=== PATIENT | male | born 1945 | race Caucasian/White ===

== ENCOUNTER 2016-04-16 07:57 | Inpatient (IN) | payer OTHER, BC ==
[~2016-04-16] VITALS: Ht 180.3 cm; Wt 91.6 kg
[~2016-04-16 07:57] MED LIST: ASPI-232 PO; LISI-461 PO; OMEG1CAP81 PO; SITA25TA PO; TRAM-10 PO
--- NOTE | 2016-04-16 08:40 | EMERGENCY ROOM VISIT NOTE ---
ED Visit Note First contact with patient: 08:05 I have seen and examined this patient with Jono Morrow and generally agree with the treatment plan as discussed. Problem List Medical Problems: (1) ACUTE VENOUS EMBOLISM & THROMBOSIS UNSP DEEP VESSELS OF LE Status: Resolved (2) Diverticulitis Status: Chronic Current/Historical Medications Scheduled Aspirin (Aspir-81), 81 MG PO DAILY Cinnamon (Cinnamon), 1,000 MG PO DAILY Coenzyme Q10 (Ubidecarenone) (Co Q 10), 100 MG PO DAILY Lisinopril (Zestril), 10 MG PO DAILY Multiple Vitamins W/ Minerals (Multi For Him), 1 TAB PO DAILY [place]-3 Fatty Acids (Fish Oil), 1,200 MG PO QAM Rosuvastatin Calcium (Crestor), 10 MG PO DAILY Sitagliptin (Januvia), 25 MG PO DAILY Scheduled PRN Tramadol (Ultram), 50 MG PO Q4H PRN for Pain Allergies Coded Allergies: Codeine (Verified Allergy, Mild, HIVES, 12/06/15) Sulfa Drugs (Verified Allergy, Unknown, HIVES, 12/06/15) Vital Signs Date Time Temp Pulse Resp B/P Pulse Ox O2 Delivery O2 Flow Rate FiO2 04/16/16 07:58 36.9 122 20 163/101 94 Laboratory Results Test 04/16/16 08:29 Departure Information Referrals Pro,Flex Woo M.D. (PCP) Patient Instructions A Signature Page, My [facility]
[2016-04-16 08:58] LABS: BASO % 0.6 %; BASO ABS # 0.04 K/uL (0-0.2); COMPLETE YES; EOS % 4.5 %; HEMATOCRIT 39.9 % (42-52); IG% 0.1 %; LYMPH % 13.1 %; LYMPH ABS # 0.95 K/uL (1.2-3.4); MEAN CELL VOLUME 82.4 fL (80-100); MEAN CORPUSCULAR HEMOGLOBIN 28.3 pg (25-34); MEAN CORPUSCULAR HGB CONC 34.3 g/dl (32-36); MONO % 8.5 %; NEUT % 73.2 %; PLATELET COUNT 123 K/uL (130-400); RED BLOOD COUNT 4.84 M/uL (4.7-6.1); WHITE BLOOD COUNT 7.26 K/uL (4.8-10.8)
[2016-04-16 09:10] LABS: INR 1.1 (0.9-1.1); PARTIAL THROMBOPLASTIN RATIO 1.1; PROTHROMBIN TIME (PATIENT) 11.8 SECONDS (9.0-12.0)
[2016-04-16 09:15] LABS: BUN/CREATININE RATIO 16.4 (10-20); CALCIUM 9.3 mg/dl (8.5-10.1); CREATININE 2.2 mg/dl (0.60-1.40); POTASSIUM 5.1 mmol/L (3.5-5.1)
[2016-04-16 09:18] LABS: ALB/GLOB RATIO 1.1 (0.9-2)
--- NOTE | 2016-04-16 10:18 | DIAGNOSTIC IMAGING REPORT ---
RIGHT LOWER EXTREMITY VENOUS DOPPLER HISTORY: Right leg pain and swelling for COMPARISON STUDY: None. FINDINGS: There is an acute appearing deep vein thrombosis within the distal superficial femoral vein, popliteal vein, posterior tibial veins, and peroneal veins. The majority of the thrombus appears occlusive. The common femoral vein and anterior tibial vein are patent. IMPRESSION: Extensive right lower extremity DVT as described above. Electronically signed by: Kehinde Rascon M.D. 04/16/2016 10:17 AM
--- NOTE | 2016-04-16 11:34 | EMERGENCY ROOM VISIT NOTE ---
History First contact with patient: 08:05 Chief Complaint: CALF PAIN Stated Complaint: PAIN RIGHT CALF, SWELLING History of Present Illness Patient is a 70-year-old white male with past medical history significant for diabetes, hypertension, dyslipidemia and a factor V Leiden genetic mutation who presents to emergency department for evaluation of right calf pain. He noticed discomfort in the midportion of the right calf last night. He states that his right calf is a little bit more swollen than the left. He states that he is pain with weight bearing and when he moves his ankle. He states it feels muscular in nature. He has a history of a left lower extremity DVT in 2009. He denies that that was associated with any travel, surgery or prolonged immobilization. He states that he did have a coagulation workup at that time and tested positive for one factor V Leiden genetic mutation. He was anticoagulated for 6 months. He did travel to [facility] a couple of weeks ago by plane. 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 He denies any symptoms in the left leg. No unusual activity, trauma to the right leg or falls that he could attribute to his symptoms. He denies any chest pain, palpitations or shortness of breath. He does not smoke. He states that saw Dr. Wu, his PCP earlier this week for a physical. 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 He does state that his heart rate was high initially when he was in Dr. Wu's office, but was rechecked and was in the 90s. He follows with nephrology due to a history of renal carcinoma for which he underwent nephrectomy. He did not require any adjuvant therapy. Review of Systems Review of systems as per HPI. All other systems reviewed were negative. 10 systems reviewed. Past Medical/Surgical History Medical Problems: (1) ACUTE VENOUS EMBOLISM & THROMBOSIS UNSP DEEP VESSELS OF LE (2) Arthritis of right hip (3) Diab Haley Wo Compl, Type Ii Or Unspec Type, Not Uncntrld (4) Diverticulitis (5) Dyslipidemia (6) Factor V Leiden mutation (7) Hx-Venous Thrombosis&Embolism (8) Hypertension (9) Renal cell carcinoma Surgical Problems: (1) History of nephrectomy, unilateral (2) History of spinal surgery Electronic medical records are reviewed and summarized as above/below. See Problem List. Family History Patient reports no known family medical history. Social History Smoking Status: Never Smoker Alcohol Use: occasionally Drug Use: none Marital Status: Occupation Status: retired Current/Historical Medications Scheduled Aspirin (Aspir-81), 81 MG PO DAILY Calcitriol (Rocaltrol Cap), 0.25 MCG PO Q2D Cinnamon (Cinnamon), 1,000 MG PO DAILY Coenzyme Q10 (Ubidecarenone) (Co Q 10), 100 MG PO DAILY Lisinopril (Zestril), 20 MG PO DAILY Multiple Vitamins W/ Minerals (Multi For Him), 1 TAB PO DAILY [place]-3 Fatty Acids (Fish Oil), 1,200 MG PO QAM Rosuvastatin Calcium (Crestor), 10 MG PO DAILY Sitagliptin (Januvia), 25 MG PO DAILY Scheduled PRN Tramadol (Ultram), 50 MG PO Q4H PRN for Pain Allergies Coded Allergies: Codeine (Verified Allergy, Mild, HIVES, 04/16/16) Sulfa Drugs (Verified Allergy, Unknown, HIVES, 04/16/16) Physical Exam Vital Signs Date Time Temp Pulse Resp B/P Pulse Ox O2 Delivery O2 Flow Rate FiO2 04/16/16 13:18 100 04/16/16 13:16 96 20 154/96 96 Room Air 04/16/16 12:29 Room Air 04/16/16 11:49 91 18 134/99 93 Room Air 04/16/16 10:47 100 04/16/16 10:10 85 19 111/82 97 Room Air 04/16/16 07:58 36.9 122 20 163/101 94 Physical Exam CONSTITUTIONAL: Patient is a pleasant, well-appearing 70-year-old white male who is awake and alert and in no acute distress. Blood pressure noted to be 163 /101 in triage. Pulse rate was 122 beats per minute, was rechecked by me at time of exam and was 101 beats per minute. Oxygen saturation is 94% on room air. EYES: Pupils equal, round, reactive to light and accommodation. EOMs intact without nystagmus. Sclera are anicteric. ENT: Tympanic membranes intact, with normal landmarks. External canals are clear. Oral and nasopharynx are clear. Mucous membranes are moist, no lesions , tongue and gums appear normal. NECK: No bruits auscultated. Supple without lymphadenopathy. No thyromegaly. No meningeal signs. Full active range of motion without discomfort. CARDIOVASCULAR: Tachycardic rate and rhythm, with normal S1 and S2, no murmur or gallop or rub is heard. No carotid bruits auscultated. No JVD. Peripheral pulses easy to palpable. RESPIRATORY: Breath sounds equal and clear to auscultation without wheezes, rales, or rhonchi heard. Full and equal chest expansion without accessory muscle use or retractions. GI: Bowel sounds are present. Abdomen is soft, nontender, nondistended. No organomegaly. No pulsatile masses. No guarding or rebound. MUSCULOSKELETAL: Examination of the right lower extremity shows slight swelling of the right calf/lower leg when compared to the left. He has reproducible tenderness to palpation in the mid right gastrocnemius. He has full range of motion of the knee, ankle and hip without pain. There is no pitting edema. No palpable cords, increased erythema, warmth or lymphangitic streaking. Full range of motion of extremities x 4 with good strength. Lower extremity pulses are equal and symmetrical bilaterally. INTEGUMENTARY: No lesions or rash, normal skin turgor. NEUROLOGICAL: Alert, oriented, and cooperative. Cranial nerves, sensation and strength grossly intact. Pupils round, equal, and react to light, EOMs are full. LYMPH: No lymphadenopathy. Medical Decision & Procedures ER Provider Diagnostic Interpretation: RIGHT LOWER EXTREMITY VENOUS DOPPLER HISTORY: Right leg pain and swelling for COMPARISON STUDY: None. FINDINGS: There is an acute appearing deep vein thrombosis within the distal superficial femoral vein, popliteal vein, posterior tibial veins, and peroneal veins. The majority of the thrombus appears occlusive. The common femoral vein and anterior tibial vein are patent. IMPRESSION: Extensive right lower extremity DVT as described above. Laboratory Results 04/16/16 08:40 Red Blood Count 4.84, Mean Corpuscular Volume 82.4, Mean Corpuscular Hemoglobin 28.3, Mean Corpuscular Hemoglobin Concent 34.3, Mean Platelet Volume 10.0, Neutrophils (%) (Auto) 73.2, Lymphocytes (%) (Auto) 13.1, Monocytes (%) (Auto) 8.5, Eosinophils (%) (Auto) 4.5, Basophils (%) (Auto) 0.6, Neutrophils # (Auto) 5.31, Lymphocytes # (Auto) 0.95, Monocytes # (Auto) 0.62, Eosinophils # (Auto) 0.33, Basophils # (Auto) 0.04 04/16/16 08:40 Test 04/16/16 08:40 White Blood Count 7.26 K/uL (4.8-10.8) Red Blood Count 4.84 M/uL (4.7-6.1) Hemoglobin 13.7 g/dL (14.0-18.0) Hematocrit 39.9 % (42-52) Mean Corpuscular Volume 82.4 fL (80-100) Mean Corpuscular Hemoglobin 28.3 pg (25-34) Mean Corpuscular Hemoglobin Concent 34.3 g/dl (32-36) Platelet Count 123 K/uL (130-400) Mean Platelet Volume 10.0 fL (7.4-10.4) Neutrophils (%) (Auto) 73.2 % Lymphocytes (%) (Auto) 13.1 % Monocytes (%) (Auto) 8.5 % Eosinophils (%) (Auto) 4.5 % Basophils (%) (Auto) 0.6 % Neutrophils # (Auto) 5.31 K/uL (1.4-6.5) Lymphocytes # (Auto) 0.95 K/uL (1.2-3.4) Monocytes # (Auto) 0.62 K/uL (0.11-0.59) Eosinophils # (Auto) 0.33 K/uL (0-0.5) Basophils # (Auto) 0.04 K/uL (0-0.2) RDW Standard Deviation 39.7 fL (36.4-46.3) RDW Coefficient of Variation 13.2 % (11.5-14.5) Immature Granulocyte % (Auto) 0.1 % Immature Granulocyte # (Auto) 0.01 K/uL (0.00-0.02) Prothrombin Time 11.8 SECONDS (9.0-12.0) Prothromb Time International Ratio 1.1 (0.9-1.1) Activated Partial Thromboplast Time 28.9 SECONDS (21.0-31.0) Partial Thromboplastin Ratio 1.1 Anion Gap 9.0 mmol/L (3-11) Est Creatinine Clear Calc Drug Dose 35.7 ml/min Estimated GFR () 33.7 Estimated GFR (Non- 29.1 BUN/Creatinine Ratio 16.4 (10-20) Calcium Level 9.3 mg/dl (8.5-10.1) Total Bilirubin 0.6 mg/dl (0.2-1) Aspartate Amino Transf (AST/SGOT) 18 U/L (15-37) Alanine Aminotransferase (ALT/SGPT) 30 U/L (12-78) Alkaline Phosphatase 66 U/L (45-117) Total Protein 6.9 gm/dl (6.4-8.2) Albumin 3.6 gm/dl (3.4-5.0) Globulin 3.3 gm/dl (2.5-4.0) Albumin/Globulin Ratio 1.1 (0.9-2) ED Course The patient was seen and evaluated as above. Old records are reviewed. Initially, blood work was ordered including CBC with differential, CMP and PT/PT /INR. Right lower extremity ultrasound was performed. The patient remained borderline tachycardic throughout his emergency department stay, otherwise was hemodynamically stable. Patient's laboratory studies were reviewed. H&H is 13.7 and 39.9, platelet count is slightly low at 123,000. Coags are normal. Electrolytes are within normal limits. Liver functions are normal. BUN and creatinine are elevated at 36 and 2.2 respectively, consistent with his chronic kidney disease. He reported to me that his baseline creatinine is around 1.9. Ultrasound of the right lower extremity showed extensive DVT. The patient was reassessed. Upon further questioning, he did admit to intermittent shortness of breath and pain in his shoulders which he had attributed to musculoskeletal source. All laboratory and diagnostic imaging studies were reviewed with attending physician, who also independently evaluated the patient. Certainly, given the extensive DVT and his hypercoagulable state, I was concerned for a pulmonary embolus. Unfortunately he cannot have a CTA due to his renal function. EKG was performed and revealed a normal sinus rhythm at 83 beats per minute. No acute ischemic changes are noted. Given the extensive DVT, tachycardia, shoulder pain and shortness of breath, I did review the patient with the [facility] hospitalist service for further care and evaluation. Anticoagulation was held at their request pending hospitalist evaluation. The patient remained hemodynamically stable while in the emergency department. Differential diagnoses entertained included DVT, calf strain, superficial thrombophlebitis, cellulitis, compartment syndrome, PE, among others. Medical Decision See ED Course. Impression Primary Impression: Deep vein thrombosis (DVT) of right lower extremity Additional Impression: Tachycardia Departure Information Dispostion Being Evaluated By Hospitalist Referrals Pro,Flex Woo M.D. (PCP) Patient Instructions A Signature Page, My [facility]
[2016-04-16 12:29] VITALS: Ht 180.3 cm; Wt 91.6 kg
[2016-04-16] MEDS ORDERED: GLUCAGON FOR INJ 1 MG VIAL SQ PRN (13:45)
[2016-04-16] MEDS ORDERED: GLUCOSE 40% GEL 15 GM TUBE PO PRN (13:45)
[2016-04-16] MEDS ORDERED: ACETAMINOPHEN 325 MG TAB PO PRN (13:45)
[2016-04-16] MEDS ORDERED: GLUCOSE 10 TABS/TUBE PO PRN (13:45)
[2016-04-16] MEDS ORDERED: DEXTROSE 50% 50 ML SYR IV PRN (13:45)
[2016-04-16] MEDS ORDERED: ONDANSETRON INJ 2 MG/ML 2 ML VIAL IV PRN (13:45)
[2016-04-16] MEDS ORDERED: STANDARD WARFARIN NOMOGRAM PO SCH (14:00)
[2016-04-16] MEDS ORDERED: HEPARIN 25000 UNIT/500 ML D5W ONE (14:12)
[2016-04-16] MEDS ORDERED: HEPARIN SOD 5000 UNIT/0.5 ML CARP ONE (14:12)
[2016-04-16 15:25] VITALS: BP 155/99; PULSE 89; TEMP 37.3; O2SAT 91
--- NOTE | 2016-04-16 15:30 | HISTORY & PHYSICAL EXAMINATION ---
DATE OF ADMISSION: 04/16/2016 ADMISSION LEVEL 3. CHIEF COMPLAINT: Right lower extremity edema. HISTORY OF PRESENT ILLNESS: This is a 70-year-old male with known history of factor V deficiency. Basically he had DVT in 2009 and he was on Coumadin for 6 months and has been discontinued. He woke up this morning having painful swelling of the right leg and he knew this could be another DVT. He came to the hospital. He denied any falling or any trauma. 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 Mild chest pain and no shortness of breath, no fever, no chills, no loss of consciousness, no headache, no blurry vision, no bleeding tendency. Workup in the Emergency Room showed DVT in the right lower extremity. Creatinine around 2, he has 1 kidney, 1 removed for renal cancer. According to the patient and the he uses lisinopril 10 mg which was recently increased by his experimental psychologist to 20 mg. It was addressed with them this could be affecting kidney specially has one kidney ,but he wanted to continue it and he was okay to be decreased back to10 mg. He does not want to be discontinued completely. Discussion about DVT managing it, they were asking for Eliquis after explaining to them in regard to the kidney function and bleeding risk and no availability of reversal agent they chose now to go on heparin and Coumadin for now. 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 PAST SURGICAL HISTORY: Positive for nephrectomy and lower back surgery. SOCIAL HISTORY: , lives with . Never smoked. Occasionally drinks some alcohol. No drugs. FAMILY HISTORY: Negative for hypercoagulability diseases, history of hypertension and diabetes as well. REVIEW OF SYSTEMS: From 12-point review as mentioned in history and physical, all the findings appreciated. MEDICATIONS ON ADMISSION: Reconciled with the patient and the . 1. Aspirin 81 mg daily. 2. Calcitrol 0.25 every other day. 3. Cinnamon 1000 mg daily. 4. CoQ10 100 mg daily. 5. Lisinopril 20 mg daily. 6. Multivitamin with mineral once daily. 7. [place] 3 1200 daily. 8. Crestor 10 mg daily. 9. Januvia 25 daily. 10. Ultram 50 mg every 4 hours as needed. ALLERGIES: CODEINE AND SULFA DRUGS. PHYSICAL EXAMINATION: VITAL SIGNS: Temperature 36.7, pulse 105, then 91, blood pressure 146/89, now like 130s/90s. O2 sat 96% on room air. Blood pressure now is 134/99. O2 sat was 97 on the room air. Heart rate is like 91. Temperature is 36.9. GENERAL: Awake, alert, oriented x3, not in distress. HEAD, EYES, EARS, NOSE, AND THROAT: Normocephalic. No nasal discharge. SKIN: Mucous membranes warm, dry. Moist mucous membranes. NECK: Supple. No JVD. No bruits. No goiter. CHEST: Symmetrical expansion, no tenderness. LUNGS: With air entry bilaterally. No rales or rhonchi. No crackles. No wheezes. HEART: S1, S2. Regular. No added sound appreciated. ABDOMEN: Globular, soft, nontender. No guarding, no rigidity. Bowel sounds positive. EXTREMITIES: Pitting edema of the right lower extremity with good peripheral pulses. Mild swelling of the left lower extremity as well. Good range of motion of the joint, bone and muscle. Good range of motion of the joint. No erythema, swelling or tenderness of any joint or muscle. BACK: No costovertebral angle tenderness. No lower back erythema or ulceration. PELVIC: Deferred. RECTAL: Deferred. NEUROLOGICALLY: Awake, alert, oriented. Motor and sensation intact. LABORATORY DATA: PT 11.8, INR 1.1, PTT 20.9 and PTT ratio is 1.1. Sodium 139, potassium 5.1, chloride 105, BUN 36, creatinine 2.20, creatinine clearance 35.7, sugar 228. Liver enzymes normal. White cell count 7.26, hemoglobin more than 14, hematocrit 39.9, platelet count 123. Lower extremity ultrasound basically showed extensive right lower extremity DVT. IMPRESSION: A 70-year-old male presented with painful swelling of the right lower extremity, was having some tachycardia, mild chest pain earlier. Definitely there is a DVT in the right lower extremity, PE is questionable but having no chest pain, no shortness of breath, heart rate is improving. 1. Deep venous thrombosis of the right lower extremity with known factor V deficiency with recent travel to [place]. 2. Tachycardia with mild chest pain earlier with pulmonary embolism questionable but unlikely. 3. Factor V deficiency. 4. Chronic kidney disease stage II on III. 5. Diabetes. 6. Hypertension. 7. Dyslipidemia. 8. History of renal cell carcinoma status post nephrectomy on the left side. PLAN: 1. The patient needs to be admitted as an inpatient clearly DVT and questionable PE, otherwise he is at risk of worsening condition, cardiopulmonary compromise with high morbidity and mortality. I had a long and detailed discussion with the patient and the family regarding anticoagulation. All questions answered about Eliquis and not having antidotes for now, specially with poor renal function. They opted to go on Coumadin and heparin for now and if he remains stable and no issue maybe the heparin could be changed to Lovenox renally dosed and could be home and finish Lovenox and Coumadin accordingly at home. 2. Monitor for bleeding and nay bleeding event which is denied by the patient and the . 3. Regarding the lisinopril I recommended to be discontinued and use another blood pressure agent specially his pressure is not so high and he is only on Lisinopril, but patient insisting on continuing it but he is okay to go back to 10 mg which was recently increased from 10 to 20. Give him some IV fluid, recheck renal function again. Will hold any CT of the chest because of the renal function and even VQ scan garret not help us or make a difference specially he is stable even if he has PE. we are going to treat him anyway unless the patient's condition deteriorates, in that case it will be a different conversation. I explained to him again that he needs to have regular checkup and monitor INR and blood count as well, monitor for any kind of bleeding . 4. Regarding the diabetes I am going to put the patient back on Januvia and monitor blood sugar closely. 5. Regarding dyslipidemia continue statin. 6. Regarding chronic renal failure, recheck but he wanted to continue lisinopril and recommended him to follow up with the experimental psychologist as an outpatient a well. Continue the rest of the management. All this was discussed with the patient and and they expressed understanding. Code status is going to be full code. DVT prophylaxis he is going to be on heparin and Coumadin. Time spent is 50 minutes. MTDD
[2016-04-16 16:00] VITALS: O2SAT 91
[2016-04-16] MEDS: SODIUM CHLORIDE 0.9% 1000ML 1,000 ML IV SCH (16:20)
[2016-04-16] MEDS: WARFARIN SOD 5 MG TAB PO SCH (16:23)
[2016-04-16] MEDS: INSULIN ASPART 100 UNITS/ML 3 ML PEN SC SCH ×2 (18:15→20:38)
[2016-04-16 19:24] VITALS: BP 149/105; PULSE 93; TEMP 37.1; O2SAT 92
[2016-04-16 20:00] VITALS: O2SAT 91
[2016-04-16 20:48] LABS: PARTIAL THROMBOPLASTIN RATIO 1.9
[2016-04-16] MEDS ORDERED: NURSING VERBAL MED ORDER ONE (23:45)
[2016-04-16] MEDS ORDERED: SODIUM CHLORIDE 0.65% NA SOLN 45 ML (OCEAN) ONE (23:46)
[2016-04-16 23:58] VITALS: BP 144/88; PULSE 97; TEMP 36.9; O2SAT 95
[2016-04-17] VITALS (8 sets, daily range): BP systolic 123–157; BP diastolic 72–91; PULSE 60–85; TEMP 36.3–37; O2SAT 92–96
[2016-04-17] MEDS ORDERED: SODIUM CHLORIDE 0.65% NA SOLN 45 ML (OCEAN) PRN (00:15)
[2016-04-17] MEDS: SODIUM CHLORIDE 0.9% 1000ML 1,000 ML IV SCH (02:45)
[2016-04-17] MEDS: HEPARIN 25,000 UNIT/500ML D5W 500 ML IV PRN ×3 (03:24→18:30)
[2016-04-17] MEDS: ASPIRIN 81 MG ECTAB PO SCH (08:04)
[2016-04-17] MEDS: CEROVITE ADV FORMULA TAB PO SCH (08:04)
[2016-04-17] MEDS: LISINOPRIL 10 MG TAB PO SCH (08:05)
[2016-04-17] MEDS: SITAGLIPTIN 25 MG TAB PO SCH (08:05)
[2016-04-17] MEDS: ROSUVASTATIN CALCIUM 10 MG TAB PO SCH (08:06)
[2016-04-17] MEDS ORDERED: CALCITRIOL 0.25 MCG CAP PO SCH (09:00)
[2016-04-17 09:11] LABS: PARTIAL THROMBOPLASTIN RATIO 1.8
[2016-04-17] MEDS: INSULIN ASPART 100 UNITS/ML 3 ML PEN SC SCH ×4 (09:27→20:33)
[2016-04-17] MEDS ORDERED: HEPARIN IV BOLUS 3,000 UNIT in SYRINGE 0 ML IV ONE (10:45)
--- NOTE | 2016-04-17 16:21 | Progress Note ---
Subjective Date of Service: Apr 17, 2016. Subjective Pt evaluation today including: conversation w/ patient, conversation w/ family , chart review, review of studies Pain: none PO Intake: well Voiding: no voiding problems seen and examined awake and alert, afebrile, no CP or SOB, no N or V, no bleeding events, at bed site, R leg pain and swelling are less still on hep drip Problem List Medical Problems: (1) Arthritis of right hip Status: Chronic (2) Deep vein thrombosis (DVT) of right lower extremity Status: Acute (3) Diab Haley Wo Compl, Type Ii Or Unspec Type, Not Uncntrld Status: Chronic (4) Dyslipidemia Status: Chronic (5) Factor V Leiden mutation Status: Chronic (6) Hypertension Status: Chronic (7) Tachycardia Status: Acute Review of Systems Constitutional: + see HPI Eyes: + see HPI ENT: + see HPI Respiratory: + see HPI Cardiac: + see HPI Abdomen: + see HPI Musculoskeletal: + see HPI Male : + see HPI Neurologic: + see HPI Psychiatric: + see HPI Heme: + see HPI Endo: + see HPI Medications Current Inpatient Medications Medications (Trade) Dose Ordered Sig/Sis Route Start Time Stop Time Status Last Admin Dose Admin Acetaminophen (Tylenol Tab) 650 mg Q4H PRN PO 04/16/16 13:45 05/16/16 13:44 Ondansetron HCl (Zofran Inj) 4 mg Q6H PRN IV 04/16/16 13:45 05/16/16 13:44 Insulin Aspart (novoLOG ASPART) SLIDING SCALE If C... ACHS SC 04/16/16 16:30 05/16/16 16:29 04/17/16 09:27 1 UNITS Glucose (Glucose 40% Gel) 15-30 GRAMS 15 GRAMS... UD PRN PO 04/16/16 13:45 05/16/16 13:44 Glucose (Glucose Chew Tab) 4-8 Tablets 4 Tabl... UD PRN PO 04/16/16 13:45 05/16/16 13:44 Dextrose (Dextrose 50% 50ML Syringe) 25-50ML OF 50% DW IV FOR... UD PRN IV 04/16/16 13:45 05/16/16 13:44 Glucagon (Glucagon Inj) 1 mg UD PRN SQ 04/16/16 13:45 05/16/16 13:44 Aspirin (Ecotrin Tab) 81 mg DAILY PO 04/17/16 09:00 05/17/16 08:59 04/17/16 08:04 81 MG Calcitriol (Rocaltrol Cap) 0.25 mcg Q2D@0900 PO 04/17/16 09:00 05/17/16 08:59 04/17/16 08:06 0.25 MCG Lisinopril (Zestril Tab) 10 mg DAILY PO 04/17/16 09:00 05/17/16 08:59 04/17/16 08:05 10 MG Multivitamins/ Minerals (Multivitamin W/ Minerals Tab) 1 tab DAILY PO 04/17/16 09:00 05/17/16 08:59 04/17/16 08:04 1 TAB Rosuvastatin Calcium (Crestor Tab) 10 mg DAILY PO 04/17/16 09:00 05/17/16 08:59 04/17/16 08:06 10 MG Sitagliptin Phosphate (Januvia Tab) 25 mg DAILY PO 04/17/16 09:00 05/17/16 08:59 04/17/16 08:05 25 MG Tramadol HCl 50 mg 50 mg Q4H PRN PO 04/16/16 13:45 05/16/16 13:44 Heparin Sodium/ Dextrose (Heparin 25,000 Unit/500ml D5W) 500 ml @ 33 mls/hr [id number] PRN IV 04/16/16 14:30 05/16/16 14:29 04/17/16 10:54 33 MLS/HR Warfarin Sodium (Coumadin Tab) 5 mg DAILY@16 PO 04/16/16 16:00 05/16/16 15:59 04/16/16 16:23 5 MG Sodium Chloride ([place] Nasal [place]) 1 sprays PRN PRN NA 04/17/16 00:15 05/17/16 00:14 Objective Vital Signs Date Time Temp Pulse Resp B/P Pulse Ox O2 Delivery O2 Flow Rate FiO2 04/17/16 15:08 36.3 78 20 150/75 92 Room Air 04/17/16 12:00 Room Air 04/17/16 11:18 37.0 76 20 123/72 93 Room Air 04/17/16 08:00 Room Air 04/17/16 07:36 36.8 74 22 136/72 94 Room Air 04/17/16 04:00 Room Air 04/17/16 03:45 36.7 85 22 132/87 95 Room Air 04/17/16 00:00 Room Air 04/16/16 23:58 36.9 97 22 144/88 95 Room Air 04/16/16 20:00 91 Room Air 04/16/16 19:24 37.1 93 20 149/105 92 Room Air Physical Exam General Appearance: no apparent distress, + obese Eyes: normal inspection, sclerae normal ENT: normal ENT inspection, hearing grossly normal Neck: supple, no adenopathy, no JVD Respiratory/Chest: chest non-tender, lungs clear, normal breath sounds, no respiratory distress, no accessory muscle use Cardiovascular: regular rate, rhythm, no edema, no gallop, no JVD, no murmur Abdomen: normal bowel sounds, non tender, soft, no organomegaly, no pulsatile mass Extremities: normal range of motion, non-tender, normal inspection, no pedal edema, no calf tenderness Neurologic/Psychiatric: no motor/sensory deficits, alert, normal mood/affect, oriented x 3 Skin: normal color, warm/dry, no rash Lymphatic: no adenopathy Laboratory Results Last 24 Hours Test 04/16/16 16:36 04/16/16 20:13 04/16/16 20:17 04/17/16 07:50 Bedside Glucose 189 mg/dl 187 mg/dl Activated Partial Thromboplast Time 49.2 SECONDS 46.1 SECONDS Partial Thromboplastin Ratio 1.9 1.8 Test 04/17/16 11:34 Bedside Glucose 181 mg/dl Assessment and Plan -Deep venous thrombosis of the right lower extremity with known factor V deficiency with recent travel to [place]. because of ARF and new agents not having reversal agnet they opted to go for warfarin for now cont hep and warfarin if renal fun is better by tomorrow and no bleeding event , hep can be changed to Lovenox and be dced w Lovenox and Coumadin Needs life long Anticoagulation - Doubted PE even w Tachycardia with mild chest pain , resolved will be anticoagulated anyway -Known H/O Factor V deficiency. Acute renal failure, has only R kid and his box tender just increased his Lisinopril to 20 mg recommended to be completely stopped but he dose not want to despite explaining to them and explaining renal effect and having only one kidney, he agree to decrease the dose back to 10 Chronic kidney disease stage II on III. recheck labs IVF Diabetes. Fideluvюлия Monitor BS Hypertension. lisinopril, BP in good range Dyslipidemia. statin History of renal cell carcinoma status post nephrectomy on the left side. plan: all Dw pat and in detail rest above DVt pro: Hep and Coumadin
[2016-04-17] MEDS: WARFARIN SOD 5 MG TAB PO SCH (16:24)
[2016-04-17 17:23] LABS: PARTIAL THROMBOPLASTIN RATIO 2.5
[2016-04-17 23:35] LABS: PARTIAL THROMBOPLASTIN RATIO 2.3
[2016-04-18] VITALS (7 sets, daily range): BP systolic 123–154; BP diastolic 78–83; PULSE 84–101; TEMP 36.9–37.3; O2SAT 92–99
[2016-04-18 05:51] LABS: INR 1.2 (0.9-1.1); PARTIAL THROMBOPLASTIN RATIO 2.2; PROTHROMBIN TIME (PATIENT) 12.8 SECONDS (9.0-12.0)
[2016-04-18 06:18] LABS: BUN/CREATININE RATIO 12.1 (10-20); CALCIUM 8.9 mg/dl (8.5-10.1); CREATININE 1.8 mg/dl (0.60-1.40); POTASSIUM 4.4 mmol/L (3.5-5.1)
[2016-04-18] MEDS: TRAMADOL HCL 50 MG TAB PO PRN ×2 (08:00→15:55)
[2016-04-18] MEDS: ASPIRIN 81 MG ECTAB PO SCH (08:42)
[2016-04-18] MEDS: CEROVITE ADV FORMULA TAB PO SCH (08:43)
[2016-04-18] MEDS: ROSUVASTATIN CALCIUM 10 MG TAB PO SCH (08:43)
[2016-04-18] MEDS: LISINOPRIL 10 MG TAB PO SCH (08:43)
[2016-04-18] MEDS: SITAGLIPTIN 25 MG TAB PO SCH (08:43)
[2016-04-18] MEDS: INSULIN ASPART 100 UNITS/ML 3 ML PEN SC SCH ×2 (08:45→12:25)
[2016-04-18] MEDS: HEPARIN 25,000 UNIT/500ML D5W 500 ML IV PRN (10:49)
[2016-04-18] MEDS: WARFARIN SOD 5 MG TAB PO SCH (15:54)
[2016-04-18] MEDS ORDERED: LSN10 PO (15:55)
[2016-04-18] MEDS ORDERED: LVNIS100 SQ (15:55)
[2016-04-18] MEDS ORDERED: CMD5 PO (15:55)
[2016-04-18] MEDS ORDERED: ENOXAPARIN 1 MG/KG SQ SCH (16:00)
--- NOTE | 2016-04-18 16:01 | Discharge Instructions ---
Discharge Instructions Admission Reason for Admission: DVT Discharge Discharge Diagnosis / Problem: Right lower extremity DVT Discharge Goals Goal(s): Improve disease control, Therapeutic intervention Activity Recommendations Activity Limitations: as noted below Exercise/Sports Limitations: gradually increase as tolerated Because you are on a blood thinner, you should avoid contact sports or any activities that may put you at risk for head trauma. You should always wear a helmet when biking or on motorized vehicles, skiing, etc. . . Instructions / Follow-Up Instructions / Follow-Up You were admitted to the hospital due to a DVT in your right leg. You were unable to have a CT scan of the chest done to look for a pulmonary embolism due to your low kidney function. Regardless, you will need to remain on anticoagulation with coumadin for the rest of your life to prevent future blood clots. You will need to use the Lovenox injections twice daily along with your once daily coumadin until directed to stop by your doctor or by the Coumadin Clinic. Due to the holiday, we were unable to set you up with the coumadin clinic prior to discharge. You should have your PT/INR blood work checked tomorrow at the hospital lab and the results will be sent to Dr. Wu. Current Hospital Diet Patient's current hospital diet: AHA Diet (Heart Healthy), Diabetes Type 2 Diet Discharge Diet Recommended Diet: AHA Diet (Heart Healthy), Diabetes Type 2 Diet (and a consistently low Vitamin K diet.) Procedures Procedures Performed: Doppler Right lower extremity Pending Studies Studies pending at discharge: no Laboratory Results Hemoglobin A1c Test 04/06/16 07:59 Range/Units Estimated Average Glucose 183 mg/dl Hemoglobin A1c 8.0 H 4.5-5.6 % Lipid Panel Test 04/06/16 07:59 Range/Units Triglycerides Level 138 0-150 mg/dl Cholesterol Level 143 0-200 mg/dl HDL Cholesterol 37 mg/dl Cholesterol/HDL Ratio 3.9 LDL Cholesterol, Calculated 78 mg/dl Medical Emergencies . Who to Call and When: Medical Emergencies: If at any time you feel your situation is an emergency, please call 911 immediately. . Non-Emergent Contact Non-Emergency issues call your: Primary Care Provider Call Non-Emergent contact if: temperature is above 101, your pain is not controlled, your pain is worsening, you have any medication questions or if your leg swelling or pain is worse and not better. Call if you develop chest pain or shortness of breath or have bleeding of any kind, or a severe headache. . "Provider Documentation" section prepared by Hannah Us. VTE Core Measure Inpt VTE Proph given/why not?: Enoxaparin (Lovenox)SQ, Warfarin (Coumadin)
[2016-04-18] MEDS ORDERED: ENOXAPARIN 100 MG/1ML SYR SQ SCH ×3 (16:30→18:00)
[2016-04-19] MEDS ORDERED: ENOXAPARIN 100 MG/1ML SYR SQ SCH (18:00)
--- NOTE | 2016-04-21 07:04 | Discharge Summary ---
Discharge Summary Admission Date: Apr 16, 2016 at 13:50 Discharge Date: Apr 18, 2016 Discharge Disposition: Home Principal Diagnosis: DVT right lower extremity Problems/Secondary Diagnoses: (1) Arthritis of right hip Status: Chronic (2) Diab Haley Wo Compl, Type Ii Or Unspec Type, Not Uncntrld Status: Chronic (3) Dyslipidemia Status: Chronic (4) Factor V Leiden mutation Status: Chronic (5) Hypertension Status: Chronic Procedures: RIGHT LOWER EXTREMITY VENOUS DOPPLER HISTORY: Right leg pain and swelling for COMPARISON STUDY: None. FINDINGS: There is an acute appearing deep vein thrombosis within the distal superficial femoral vein, popliteal vein, posterior tibial veins, and peroneal veins. The majority of the thrombus appears occlusive. The common femoral vein and anterior tibial vein are patent. IMPRESSION: Extensive right lower extremity DVT as described above. Consultations: None Medication Reconciliation New Medications: Enoxaparin (Enoxaparin Sodium) 100 Mg/Ml Inj 0.9 ML SQ Q12, #10 SYR to be used until coumadin level at correct level Lisinopril (Zestril) 10 Mg Tab 10 MG PO DAILY, #30 TAB Warfarin Sod (Coumadin) 5 Mg Tab 5 MG PO DAILY@16 for 30 Days, #30 TAB and dose to be adjusted by your doctor based on your INR lab results Continued Medications: Calcitriol (Rocaltrol Cap) 0.25 Mcg Cap 0.25 MCG PO Q2D, CAP Cinnamon (Cinnamon) 500 Mg Tab 1000 MG PO DAILY Coenzyme Q10 (Ubidecarenone) (Co Q 10) 100 Mg Cap 100 MG PO DAILY Multiple Vitamins W/ Minerals (Multi For Him) 1 Tab Tab 1 TAB PO DAILY Rosuvastatin Calcium (Crestor) 10 Mg Tab 10 MG PO DAILY, TAB Sitagliptin (Januvia) 25 Mg Tab 25 MG PO DAILY, TAB Tramadol (Ultram) 50 Mg Tab 50 MG PO Q4H PRN for Pain, #30 TAB Discontinued Medications: Aspirin (Aspir-81) 81 Mg Tab 81 MG PO DAILY Lisinopril (Zestril) 10 Mg Tab 20 MG PO DAILY, TAB Arthur-3 Fatty Acids (Fish Oil) 1 Cap Cap 1200 MG PO QAM Referrals At Discharge Follow up Referrals: Family Practice Referral - Within 1 Week with Flex Wu M.D. Discharge Exam Review of Systems: Constitutional: No fever Eyes: No problem reported ENT: No problem reported Respiratory: No shortness of breath Cardiovascular: No chest pain Abdomen: No problem reported Musculoskeletal: + problem reported (left lower back pain) Genitourinary - Male: No problem reported Neurologic: No problem reported Psychiatric: No problem reported Endocrine: No problem reported Hematologic / Lymphatic: No problem reported Integumentary: No problem reported Physical Exam: General Appearance: WD/WN, no apparent distress Eyes: normal inspection, sclerae normal ENT: hearing grossly normal Neck: supple, trachea midline Respiratory/Chest: lungs clear, normal breath sounds, no respiratory distress, no accessory muscle use Cardiovascular: regular rate, rhythm, no gallop, no murmur, normal peripheral pulses, + pertinent finding (trace edema right leg) Abdomen / GI: normal bowel sounds, non tender, soft, no organomegaly Extremities: normal inspection, no calf tenderness, normal capillary refill Neurologic/Psychiatric: alert, normal mood/affect, oriented x 3 Skin: normal color, warm/dry, no rash Hospital Course This is a 70-year-old male with known history of factor V deficiency. Basically he had DVT in 2009 and he was on Coumadin for 6 months and has been discontinued. He woke up the morning of admission having painful swelling of the right leg and he knew this could be another DVT. He came to the hospital. He denied any falling or any trauma. 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 Mild chest pain and no shortness of breath, no fever, no chills, no loss of consciousness, no headache, no blurry vision, no bleeding tendency. Workup in the Emergency Room showed DVT in the right lower extremity. Creatinine around 2 , he has 1 kidney, 1 removed for renal cancer. According to the patient and the he uses lisinopril 10 mg which was recently increased by his banking assistant to 20 mg. It was addressed with them this could be affecting kidney specially has one kidney ,but he wanted to continue it and he was okay to be decreased back to10 mg. He does not want to be discontinued completely. Discussion about DVT managing it, they were asking for Eliquis after explaining to them in regard to the kidney function and bleeding risk and no availability of reversal agent they chose now to go on heparin and Coumadin for now. -Deep venous thrombosis of the right lower extremity with known factor V deficiency with recent travel to [place]. Because of ARF and new agents not having reversal agent, he opted to go for warfarin He was started on a heparin drip and maintained x 2 days.He was overlapped with warfarin. His renal function improved the next day to a retail product advisor of 1.8 and he was changed to Lovenox and dced w Lovenox and Coumadin to overlap until INR therapeutic and overlap maintained x 5 days. Needs life long Anticoagulation - Doubted PE even w Tachycardia with mild chest pain , resolved. Decreased renal function on admission prevented a CTA chest. will be anticoagulated anyway -Known H/O Factor V deficiency. Acute renal failure on Chronic kidney disease stage III. , has only R kid and his banking assistant just increased his Lisinopril to 20 mg. Law Secretary 2.2 on admission and improved to 1.8 the next day. recommended to be completely stopped but he dose not want to despite explaining to them and explaining renal effect and having only one kidney, he agree to decrease the dose back to 10mg. IVFs were given. Diabetes mellitus type II. Januvia Monitor BS Hypertension. lisinopril, BP in good range Dyslipidemia. statin History of renal cell carcinoma status post nephrectomy on the left side. Total Time Spent: Greater than 30 minutes This includes examination of the patient, discharge planning, medication reconciliation, and communication with other providers. Discharge Instructions Please refer to the electronic Patient Visit Report (Discharge Instructions) for additional information. Follow-Up With Dr. Wu within 1 week. Please have PT/INR checked in 1 day and results to be forwarded to the PCP until pt can get established with the Coumadin Clinic which was not open due to the holiday at the time of discharge. Additional Copies To ,Flex Woo M.D.
[2016-10-17] MEDS ORDERED: CALC0.2510 PO (09:03)
[2016-10-17] MEDS ORDERED: COEN1CAP17 PO (11:48)
[2016-10-17] MEDS ORDERED: CRS/10 PO (11:48)
[2016-10-17] MEDS ORDERED: MULT-220 PO (11:48)
[2016-10-17] MEDS ORDERED: CINN500T PO (11:48)
== END 2016-04-18 16:58 | disposition home or self-care (01) | DRG 300 ==
LOC: ENRESERVTM → ENRESERVDT → C.EDB 07:58 → C.MED 13:50
PROVIDERS: ADMIT Internal Medicine; ATTEND Family Medicine
DX: I82.401 Acute embolism and thrombosis of unspecified deep veins of right lower extremity (principal); N17.9 Acute kidney failure, unspecified; D68.2 Hereditary deficiency of other clotting factors; Z86.718 Personal history of other venous thrombosis and embolism; E11.9 Type 2 diabetes mellitus without complications; E78.5 Hyperlipidemia, unspecified; I12.9 Hypertensive chronic kidney disease with stage 1 through stage 4 chronic kidney disease, or unspecified chronic kidney disease; R00.0 Tachycardia, unspecified; N18.2 Chronic kidney disease, stage 2 (mild); R07.9 Chest pain, unspecified; Z85.528 Personal history of other malignant neoplasm of kidney

== ENCOUNTER → 2016-04-19 | Outpatient (CLI) | payer OTHER, BC ==
[~2016-04-19] MED LIST changes: -ASPI-232 PO; +CALC0.2510 PO; +CINN500T PO; +CMD5 PO; +COEN1CAP17 PO; +CRS/10 PO; +LSN10 PO; +LVNIS100 SQ; +MULT-220 PO; -OMEG1CAP81 PO; +SITA50TA3 PO; +WARF-246 PO; +WARF-280 PO
[2016-04-19 12:05] LABS: INR 1.6 (0.9-1.1); PROTHROMBIN TIME (PATIENT) 17.8 SECONDS (9.0-12.0)
== END | disposition home or self-care (01) ==
LOC: C.LAB 10:41
PROVIDERS: ATTEND Internal Medicine
DX: I82.409 Acute embolism and thrombosis of unspecified deep veins of unspecified lower extremity (principal)

== ENCOUNTER → 2016-04-20 | Outpatient (CLI) | payer OTHER, BC ==
[2016-04-20 11:28] LABS: INR 1.8 (0.9-1.1)
== END | disposition home or self-care (01) ==
LOC: C.LAB1850 10:36
PROVIDERS: ATTEND Internal Medicine
DX: Z86.718 Personal history of other venous thrombosis and embolism (principal)

== ENCOUNTER → 2016-04-22 | Outpatient (CLI) | payer OTHER, BC ==
[2016-04-22 12:21] LABS: INR 2.4 (0.9-1.1); PROTHROMBIN TIME (PATIENT) 26.7 SECONDS (9.0-12.0)
== END | disposition home or self-care (01) ==
LOC: C.LAB1850 10:54
PROVIDERS: ATTEND Internal Medicine
DX: Z86.718 Personal history of other venous thrombosis and embolism (principal)

== ENCOUNTER → 2016-07-27 | Outpatient (CLI) | payer OTHER, BC ==
[~2016-07-27] MED LIST changes: -TRAM-10 PO
[2016-07-27 10:10] LABS: BLOOD UREA NITROGEN 35 mg/dl (7-18); BUN/CREATININE RATIO 17.6 (10-20); CALCIUM 9.3 mg/dl (8.5-10.1); CARBON DIOXIDE 26 mmol/L (21-32); CHLORIDE 106 mmol/L (98-107); GLUCOSE 213 mg/dl (70-99); POTASSIUM 4.4 mmol/L (3.5-5.1); SODIUM 139 mmol/L (136-145)
[2016-07-27 10:28] LABS: ESTIMATED AVERAGE GLUCOSE 200 mg/dl; HA1C FLAG Normal (Normal)
== END | disposition home or self-care (01) ==
LOC: C.LAB1850 08:02
PROVIDERS: ATTEND Internal Medicine
DX: E11.9 Type 2 diabetes mellitus without complications (principal)

== ENCOUNTER → 2016-09-30 | Outpatient (CLI) | payer OTHER, BC ==
[2016-09-30 09:38] LABS: URINE APPEARANCE CLEAR (CLEAR); URINE BILIRUBIN NEG (NEG); URINE COLOR YELLOW; URINE NITRITE NEG (NEG); URINE PH 5.5 (4.5-7.5); URINE SPECIFIC GRAVITY 1.018 (1.000-1.030); UROBILINOGEN NEG (NEG)
[2016-09-30 09:41] LABS: MANUAL MICROSCOPIC REQUIRED? NO; REVIEW REQ? NO
[2016-09-30 09:53] LABS: BLOOD UREA NITROGEN 28 mg/dl (7-18); BUN/CREATININE RATIO 13.9 (10-20); CARBON DIOXIDE 26 mmol/L (21-32); CHLORIDE 107 mmol/L (98-107); GLUCOSE 161 mg/dl (70-99); POTASSIUM 4.7 mmol/L (3.5-5.1); SODIUM 141 mmol/L (136-145)
[2016-09-30 09:54] LABS: PHOSPHORUS 2.8 mg/dl (2.5-4.9)
[2016-09-30 09:56] LABS: CALCIUM 9.6 mg/dl (8.5-10.1)
[2016-09-30 10:02] LABS: URINE PROTIEN/CREAT RATIO 0.2 (0-0.2); URINE TOTAL PROTEIN 18.8 mg/dl (0-11.9)
== END | disposition home or self-care (01) ==
LOC: C.LAB1850 08:32
PROVIDERS: ATTEND Internal Medicine Nephrology
DX: N18.3 Chronic kidney disease, stage 3 (moderate) (principal)

== ENCOUNTER → 2016-10-08 | Outpatient (CLI) | payer OTHER, BC ==
--- NOTE | 2016-10-08 13:12 | DIAGNOSTIC IMAGING REPORT ---
MRI OF LUMBAR SPINE WITHOUT IV CONTRAST CLINICAL HISTORY: Low back pain and left lower extremity radiculopathy. COMPARISON STUDY: Abdominal CT dated 07/18/2015 TECHNIQUE: MRI of the lumbar spine is performed utilizing various T1 and T2-weighted sequences in the axial and sagittal planes. IV contrast was not administered for this examination. FINDINGS: Lumbar spine: Vertebral body height and alignment are maintained throughout the lumbar spine. There is mild lumbar levoscoliosis. The transverse and spinous processes are intact as visualized. There is no evidence of spondylolysis. Anterior osteophytes are seen throughout. There is chronic degenerative endplate change seen at L3-L4, L4-L5, and L5-S1. Endplate edema is seen at L3-L4. No destructive bony lesion is seen. A hemangioma is noted in the body of L3. Findings suggest previous right hemilaminectomy at L4. Intervertebral discs: There is degenerative disc desiccation with mild loss of height throughout the lumbar spine. Moderate disc space narrowing is seen at L3-L4. Spinal cord: The partially imaged spinal cord is normal in morphology and signal intensity. The conus medullaris terminates at the level of L1. The nerve roots of the cauda equina are normal in morphology. L1-L2: Unremarkable. L2-L3: Unremarkable. L3-L4: There is broad-based posterior disc bulge with annular fissure. In conjunction with hypertrophy of the ligamentum flavum there is moderate to severe central canal stenosis at this level with a minimum AP diameter of 5.5 mm. There is bilateral subarticular stenosis. There is likely impingement on the exiting bilateral L3 and the transiting bilateral L4 nerve roots. Facet arthropathy causes mild right neural foraminal stenosis. L4-L5: There is broad-based posterior disc bulge eccentric to the left with annular fissure. In conjunction with hypertrophy of the ligamentum flavum there is mild acquired compromise of the central canal at this level with a minimum AP diameter of 8.5 mm. There is bilateral subarticular stenosis, left greater than right, with possible impingement on the exiting left L4 and the transiting left L5 nerve roots. Facet arthropathy causes mild, left greater than right, neural foraminal stenosis. L5-S1: There is broad-based posterior disc bulge with annular fissure eccentric to the left. There is central canal narrowing at this level, largely on a congenital basis. The minimum AP diameter measures 8.5 mm. There is severe left-sided subarticular stenosis with impingement on the exiting left L5 nerve root. Facet arthropathy causes moderate left and mild right neural foraminal stenosis. Sacrum: Visualized sacrum is normal in morphology and signal intensity. Soft tissues: The paraspinous soft tissues are normal as imaged. The left kidney is not identified and presumed surgically absent. No retroperitoneal lymphadenopathy is seen. IMPRESSION: 1. There is moderate to severe central canal stenosis at L3-L4 secondary to a posterior disc bulge and hypertrophy of the ligamentum flavum. 2. There is mild central canal stenosis at L4-L5. 3. There is severe left-sided subarticular stenosis with impingement on the exiting left L5 nerve root secondary to a lateral disc bulge. 4. Lumbosacral spondylosis and scoliosis at additional levels as above. See discussion for detailed level by level analysis. 5. Multilevel degenerative disc disease with associated endplate edema at L3-L4. 6. Findings suggest previous right hemilaminectomy at L4. Correlation with the patient's surgical history will be required. Dictated: 10/08/2016 12:47 PM Transcribed: 10/08/2016 1:12 PM Julia Electronically signed by: Samson Bobo M.D. 10/08/2016 1:15 PM Dictated Date/Time: 10/08/2016 12:47 PM
== END | disposition home or self-care (01) ==
LOC: C.MRI 11:57
PROVIDERS: ATTEND Orthopaedic Surgery Orthopaedic Surgery of the Spine
DX: M48.06 Spinal stenosis, lumbar region (principal); M47.897 Other spondylosis, lumbosacral region

== ENCOUNTER 2016-10-17 14:18 | Emergency (ER) | payer OTHER, BC ==
[~2016-10-17] VITALS: Ht 177.8 cm; Wt 92.7 kg
[~2016-10-17 14:18] MED LIST changes: -LISI-461 PO; -SITA50TA3 PO; -WARF-246 PO; -WARF-280 PO
[2016-10-17 14:21] VITALS: TEMP 36.5; Ht 177.8 cm; Wt 92.7 kg
[2016-10-17] MEDS ORDERED: WARF-246 PO (15:49)
[2016-10-17] MEDS ORDERED: SITA50TA3 PO (15:49)
[2016-10-17] MEDS ORDERED: LISI-461 PO (15:49)
[2016-10-17] MEDS ORDERED: WARF-280 PO (15:49)
--- NOTE | 2016-10-17 15:58 | DIAGNOSTIC IMAGING REPORT ---
RIGHT SHOULDER 3 VIEWS CLINICAL HISTORY: Right shoulder pain. FINDINGS: 3 views of the right shoulder are obtained. No prior studies are available for comparison at the time of dictation. The skeletal structures are osteopenic. No fracture or dislocation is seen. Mild productive degenerative change is noted at the acromioclavicular joint. The glenohumeral articulation is preserved. Mild arthritic change is noted in the greater tuberosity of the humeral head. There is evidence of calcific tendinopathy. The visualized right lung parenchyma appears clear. IMPRESSION: 1. No fracture or dislocation is seen in the right shoulder. 2. Osteopenia with mild arthritic change and calcific tendinopathy as above. Electronically signed by: Samson Bobo M.D. 10/17/2016 3:56 PM Dictated Date/Time: 10/17/2016 3:55 PM
[2016-10-17] MEDS ORDERED: METHYLPREDNISOLONE 4MG TAB, 6 DAY TAPER PO SCH (16:00)
[2016-10-17] MEDS ORDERED: METHYLPREDNISOLONE 4 MG TAB PO ONE (16:15)
[2016-10-17 16:27] VITALS: BP 122/81; PULSE 96; O2SAT 95
--- NOTE | 2016-10-17 19:59 | EMERGENCY ROOM VISIT NOTE ---
ED Visit Note First contact with patient: 14:29 Chief Complaint: Right shoulder pain. History of Present Illness: Mr. Mijares is a 71-year-old white male who ambulates into the ED complaining of right shoulder pain with movement. Historically patient reports he's had previous rotator cuff injury and repair. He has been having chronic bilateral shoulder pain for years. He does report when he is seen at the orthopedics he does get steroid injections into both shoulders. He reports his last injection into the right shoulder was April 2016 after which he did a short amount of physical therapy. Since that time he' s been feeling well. Patient reports yesterday he was lifting a heavy flowerpot onto a hook. He reports while doing this she felt a popping sensation in the shoulder and he subsequently developed a global right shoulder pain. He reports initially it was mild and has gradually increased in intensity. His pain is described as a deep achy sensation that becomes sharp with movement. He rates his sharp discomfort 7/10. The pain is nonradiating. He complains of most of his discomfort when he moves over the anterior aspect of the humeral head. The pain primarily occurs with abduction and flexion of the shoulder. He does report he is prescribed Toradol for his pain and he has had mild relief of his discomfort when taking that. He does report he has had previous similar symptoms and has been given oral steroids which typically resolves his symptoms after the first dose. He denies any associated symptoms including neck pain, recent direct trauma, elbow pain, forearm pain, hand pain, arm weakness/numbness/tingling. Review of Systems: As noted above in history of present illness. Past Medical History: (1) ACUTE VENOUS EMBOLISM & THROMBOSIS UNSP DEEP VESSELS OF LE (2) Arthritis of right hip (3) Diab Haley Wo Compl, Type Ii Or Unspec Type, Not Uncntrld (4) Diverticulitis (5) Dyslipidemia (6) Factor V Leiden mutation (7) Hx-Venous Thrombosis&Embolism (8) Hypertension (9) Renal cell carcinoma Surgical Problems: (1) History of nephrectomy, unilateral (2) History of spinal surgery Current Medications: Medications Dose Route/Sig Max Daily Dose Days Date Category Dose Instructions Warfarin Sodium 5 Mg Tab 5 Mg PO 3XWK 10/17/16 Reported TAKE 5 MG EVERY TUESDAY,TUESDAY AND TUESDAY OR OTHERWISE DIRECTED TO TAKE BY ANTICOAGULATION CLINIC/MD Warfarin Sodium 2.5 Mg Tab 2.5 Mg PO 4XWK 10/17/16 Reported TAKE 2.5 MG EVERY TUESDAY,TUESDAY,TUESDAY AND TUESDAY OR OTHERWISE DIRECTED TO TAKE BY ANTICOAGULATION CLINIC/MD Zestril (Lisinopril) 10 Mg Tab 10 Mg PO QAM 10/17/16 Reported Januvia (Sitagliptin) 50 Mg Tab 50 Mg PO QAM 10/17/16 Reported Rocaltrol Cap (Calcitriol) 0.25 Mcg Cap 0.25 Mcg PO Q2D 04/16/16 Reported Cinnamon 500 Mg Tab 1,000 Mg PO BID 01/11/13 Reported Multi For Him (Multiple Vitamins W/ Minerals) 1 Tab Tab 1 Tab PO DAILY 01/11/13 Reported Co Q 10 (Coenzyme Q10 (Ubidecarenone)) 100 Mg Cap 100 Mg PO QAM 01/11/13 Reported Crestor (Rosuvastatin Calcium) 10 Mg Tab 10 Mg PO QAM 01/11/13 Reported Allergies to Medications: Codeine, sulfa. Social History: Patient is not currently employed; he lives with his and feels safe in his home environment; he denies tobacco use. Physical Examination: Vital Signs: Date Time Temp Pulse Resp B/P (MAP) Pulse Ox O2 Delivery O2 Flow Rate FiO2 10/17/16 16:27 96 18 122/81 95 10/17/16 14:21 36.5 93 18 125/83 95 Room Air GENERAL: 71-year-old male in mild distress due to pain, nontoxic-appearing, afebrile and hemodynamically stable. NEUROLOGICAL: Awake, alert and oriented to person, place and time. Answering questions appropriately and following commands. Normal gait. SKIN: Warm, dry and pink. No soft tissue eruptions or trauma noted. HEENT: Atraumatic and normocephalic. BACK: No tenderness over the bony cervical or thoracic spine. Full range of motion of the cervical spine. No tenderness or spasm of the paraspinous muscles. No CVA tenderness. THORAX: Lungs sounds are clear to auscultation and equal bilaterally with symmetrical chest wall. RIGHT UPPER EXTREMITY: No gross bony deformity. No tenderness over the clavicle , scapula or humeral head. Decreased range of motion in abduction, flexion and external rotation of the shoulder. With the shoulder stabilize she has 4/5 muscle strength and full range of motion of the elbow, forearm and wrist. 2+ bicipital, tricipital and brachial radialis deep tendon reflexes. Throughout the hand the skin was warm and pink and capillary refill is brisk. He is able to distinguish light sensations through all dermatomes. ED Course: Patient is assessed as noted above. Patient's medication list was reviewed. Right Shoulder X-Rays: Were read by myself and the radiologist showing no acute fractures or dislocations. Radiologist notes mild arthritic changes of the humeral head with evidence of calcified tendinopathy. Patient was given 30 mg of prednisone by mouth for his symptoms. Patient was educated about today's findings and instructed on his treatment plan ; he verbalizes understanding and agreement with this plan. Clinical Impression: Right shoulder pain. Decision-Making: Initially my differential diagnosis I considered dislocation, before meals separation, muscle strain, arthritis exacerbation, and tendinitis, fracture and other causes. Disposition: Patient discharged home in stable condition accompanied by his ; prior to departure he was reassessed and subjectively reported he was feeling better and rated his discomfort 4/10. Plan: Patient was encouraged to continue current medications as prescribed by his primary care providers. Patient was prescribed a Medrol Dosepak and encouraged to use the Medrol as dosed. Patient was encouraged use ice on the area 5-6 times a day for 30-45 minutes. Patient was encouraged to avoid heavy lifting. Patient was encouraged to contact his bombsight specialist and request follow- up care and treatment. Patient was encouraged return the ED for worsening/uncontrolled pain, uncontrolled swelling, arm weakness/numbness/tingling or any new/concerning symptoms.
== END 2016-10-17 16:28 | disposition home or self-care (01) ==
LOC: C.EDB 14:20 → C.EDD 16:28
DX: M25.511 Pain in right shoulder (principal); M19.011 Primary osteoarthritis, right shoulder; M75.31 Calcific tendinitis of right shoulder; I10 Essential (primary) hypertension; E11.9 Type 2 diabetes mellitus without complications; E78.5 Hyperlipidemia, unspecified; D68.51 Activated protein C resistance; K57.92 Diverticulitis of intestine, part unspecified, without perforation or abscess without bleeding; M16.11 Unilateral primary osteoarthritis, right hip; Z85.53 Personal history of malignant neoplasm of renal pelvis; Z86.718 Personal history of other venous thrombosis and embolism; Z90.5 Acquired absence of kidney; Z79.01 Long term (current) use of anticoagulants; Z79.899 Other long term (current) drug therapy; Z88.2 Allergy status to sulfonamides; Z88.5 Allergy status to narcotic agent

== ENCOUNTER → 2016-10-28 | Outpatient (CLI) | payer OTHER, BC ==
[~2016-10-28] MED LIST changes: -CMD5 PO; +LISI-461 PO; -LSN10 PO; -LVNIS100 SQ; -SITA25TA PO; +SITA50TA3 PO; +WARF-246 PO; +WARF-280 PO
[2016-10-28 09:45] LABS: INR 2.3 (0.9-1.1); PROTHROMBIN TIME (PATIENT) 25.4 SECONDS (9.0-12.0)
[2016-10-28 09:56] LABS: ALT/SGPT 46 U/L (12-78); AST/SGOT 17 U/L (15-37); BLOOD UREA NITROGEN 37 mg/dl (7-18); BUN/CREATININE RATIO 17.7 (10-20); CALCIUM 9.6 mg/dl (8.5-10.1); CARBON DIOXIDE 25 mmol/L (21-32); CHLORIDE 106 mmol/L (98-107); GLUCOSE 220 mg/dl (70-99); POTASSIUM 4.8 mmol/L (3.5-5.1); SODIUM 138 mmol/L (136-145)
[2016-10-28 09:59] LABS: ESTIMATED AVERAGE GLUCOSE 192 mg/dl; HA1C FLAG Normal (Normal)
[2016-10-28 10:00] LABS: CHOLESTEROL 145 mg/dl (0-200); CHOLESTEROL/HDL RATIO 4.5; HDL CHOLESTEROL 32 mg/dl; LDL CHOLESTEROL CALCULATED 68 mg/dl; TRIGLYCERIDES 224 mg/dl (0-150); VERY LOW DENSITY LIPOPROT CALC 45 mg/dl
== END | disposition home or self-care (01) ==
LOC: C.LAB1850 08:11
PROVIDERS: ATTEND Internal Medicine
DX: E11.9 Type 2 diabetes mellitus without complications (principal); I82.409 Acute embolism and thrombosis of unspecified deep veins of unspecified lower extremity; D68.51 Activated protein C resistance

== ENCOUNTER 2016-11-11 06:42 | Outpatient (CLI) | payer OTHER, BC ==
[2016-11-11 07:20] LABS: INR 1.1 (0.9-1.1)
== END 2016-11-25 07:28 | disposition home or self-care (01) ==
LOC: C.LAB1850 06:42
PROVIDERS: ATTEND Pain Medicine Interventional Pain Medicine
DX: I82.409 Acute embolism and thrombosis of unspecified deep veins of unspecified lower extremity (principal); D68.51 Activated protein C resistance; M48.06 Spinal stenosis, lumbar region; D68.4 Acquired coagulation factor deficiency

== ENCOUNTER 2017-01-18 15:14 | Emergency (ER) | payer OTHER, BC ==
[~2017-01-18] VITALS: Ht 180.3 cm; Wt 88.5 kg
[2017-01-18 15:19] VITALS: TEMP 36.5; Ht 180.3 cm; Wt 88.5 kg
--- NOTE | 2017-01-18 16:33 | EMERGENCY ROOM VISIT NOTE ---
ED Visit Note First contact with patient: 16:12 CHIEF COMPLAINT: penile wound - bleeding, on coumadin HISTORY OF PRESENT ILLNESS: This 71-year-old male patient presents to the emergency department, ambulatory, with his , complaining of bleeding from a wound on his penis. The patient states he is on Coumadin for a DVT which was found approximately one year ago. Patient states his last INR was checked approximately one month ago was 3.3. He was advised to continue his current dosage of Coumadin for one month. Patient states he was going to the bathroom, and got the tip of his penis stuck in his zipper. He states the wound is barely visible, however did bleed profusely for a long time. The patient states the bleeding didn't stop since he has been in the emergency department. He would like to have his INR checked to ensure that it is within the appropriate range. The patient denies any difficulty breathing, numbness, tingling, headache, dizziness, chest pain, extremity swelling, or other associated symptoms. REVIEW OF SYSTEMS: A 10 system review of systems was performed with positives and pertinent negatives listed in the history of present illness. All other systems were reviewed and are negative. ALLERGIES: Codeine, sulfa MEDICATIONS: Please see list. I did personally review the patient's medication list with him at bedside. PMH: Diabetes, DVT, kidney stones, single kidney SOCIAL HISTORY: The patient lives locally with family. He denies drug, alcohol, tobacco use. PHYSICAL EXAM: VITALS: Vitals are noted on the nurse's note and reviewed by myself. Vital signs stable. GENERAL: This is a 71-year-old white male, in no acute distress, nondiaphoretic , well-developed well-nourished. SKIN: Small, barely visible, superficial abrasion noted on superior aspect of the penis. This is not actively bleeding. The skin was without rashes, erythema , edema, or bruising. There is no tenting of the skin. Capillary reflex less than 2 seconds. NECK: Supple without nuchal rigidity. No lymphadenopathy. No thyromegaly. Cervical spine is nontender. No JVD. HEART: Regular rate and rhythm without murmurs gallops or rubs. LUNGS: Clear to auscultation bilaterally without wheezes, rales or rhonchi. No dullness to percussion. No retractions or accessory muscle use. NEURO: Patient was alert and oriented to person place and time. Normal sensation to light and sharp touch. No focal neurological deficits. EMERGENCY DEPARTMENT COURSE: The patient was seen and evaluated as above. Labs were drawn to evaluate INR. PRP did show elevated blood glucose level of 2:30. Creatinine was 2.1. The patient states this is normal. CBC did not show any acute abnormalities. INR was 3.3. PT was 36.7. PTT was 39.9. The patient states these numbers are stable from his last INR check. I encouraged the patient to take 2.5 mg of Coumadin tonight and tomorrow, and have his INR rechecked on at his regularly scheduled appointment. The patient states he is going to skip the Coumadin tonight and take 2.5 mg tomorrow. The patient will have his Coumadin rechecked in 2 days. No treatment was needed for the penile wound, but I did provide the patient with gauze and encouraged him to use antibiotic ointment on the wound. I discussed the case with Dr. Dangelo, who did see and evaluate the patient. The patient was discharged home in good condition. I attest that I have personally reviewed the patient's current medication list. Patient was found to have normal blood pressure on screening and does not require follow-up. DIFFERENTIAL DIAGNOSIS: Subtherapeutic INR, hypercoagulable state, abrasion, laceration, and others DIAGNOSIS: Elevated INR, penile abrasion Problem List Medical Problems: (1) ACUTE VENOUS EMBOLISM & THROMBOSIS UNSP DEEP VESSELS OF LE Status: Resolved (2) Arthritis of right hip Status: Chronic (3) Diab Haley Wo Compl, Type Ii Or Unspec Type, Not Uncntrld Status: Chronic (4) Diverticulitis Status: Resolved (5) Dyslipidemia Status: Chronic (6) Factor V Leiden mutation Status: Chronic (7) Hx-Venous Thrombosis&Embolism Status: Resolved (8) Hypertension Status: Chronic (9) Renal cell carcinoma Status: Resolved Surgical Problems: (1) History of nephrectomy, unilateral Status: Resolved (2) History of spinal surgery Status: Resolved Current/Historical Medications Scheduled Calcitriol (Rocaltrol Cap), 0.25 MCG PO Q2D Cinnamon (Cinnamon), 1,000 MG PO BID Coenzyme Q10 (Ubidecarenone) (Co Q 10), 100 MG PO QAM Lisinopril (Zestril), 10 MG PO QAM Multiple Vitamins W/ Minerals (Multi For Him), 1 TAB PO DAILY Rosuvastatin Calcium (Crestor), 10 MG PO QAM Sitagliptin (Januvia), 50 MG PO QAM Warfarin Sodium (Warfarin Sodium), 2.5 MG PO 3XWK Warfarin Sodium (Warfarin Sodium), 5 MG PO 4XWK Allergies Coded Allergies: Codeine (Verified Allergy, Mild, HIVES, 01/18/17) Sulfa Drugs (Verified Allergy, Unknown, HIVES, 01/18/17) Vital Signs Date Time Temp Pulse Resp B/P (MAP) Pulse Ox O2 Delivery O2 Flow Rate FiO2 01/18/17 17:27 86 18 169/95 96 Room Air 01/18/17 15:19 36.5 120 18 118/84 95 Room Air Laboratory Results 01/18/17 16:28 Red Blood Count 5.20, Mean Corpuscular Volume 83.3, Mean Corpuscular Hemoglobin 29.2, Mean Corpuscular Hemoglobin Concent 35.1, Mean Platelet Volume 10.1, Neutrophils (%) (Auto) 74.6, Lymphocytes (%) (Auto) 14.5, Monocytes (%) (Auto) 8.2, Eosinophils (%) (Auto) 1.6, Basophils (%) (Auto) 0.6, Neutrophils # (Auto) 6.52, Lymphocytes # (Auto) 1.27, Monocytes # (Auto) 0.72, Eosinophils # (Auto) 0.14, Basophils # (Auto) 0.05 01/18/17 16:28 Test 01/18/17 16:28 White Blood Count 8.74 K/uL (4.8-10.8) Red Blood Count 5.20 M/uL (4.7-6.1) Hemoglobin 15.2 g/dL (14.0-18.0) Hematocrit 43.3 % (42-52) Mean Corpuscular Volume 83.3 fL (80-100) Mean Corpuscular Hemoglobin 29.2 pg (25-34) Mean Corpuscular Hemoglobin Concent 35.1 g/dl (32-36) Platelet Count 200 K/uL (130-400) Mean Platelet Volume 10.1 fL (7.4-10.4) Neutrophils (%) (Auto) 74.6 % Lymphocytes (%) (Auto) 14.5 % Monocytes (%) (Auto) 8.2 % Eosinophils (%) (Auto) 1.6 % Basophils (%) (Auto) 0.6 % Neutrophils # (Auto) 6.52 K/uL (1.4-6.5) Lymphocytes # (Auto) 1.27 K/uL (1.2-3.4) Monocytes # (Auto) 0.72 K/uL (0.11-0.59) Eosinophils # (Auto) 0.14 K/uL (0-0.5) Basophils # (Auto) 0.05 K/uL (0-0.2) RDW Standard Deviation 39.3 fL (36.4-46.3) RDW Coefficient of Variation 13.1 % (11.5-14.5) Immature Granulocyte % (Auto) 0.5 % Immature Granulocyte # (Auto) 0.04 K/uL (0.00-0.02) Prothrombin Time 36.7 SECONDS (9.0-12.0) Prothromb Time International Ratio 3.3 (0.9-1.1) Activated Partial Thromboplast Time 39.9 SECONDS (21.0-31.0) Partial Thromboplastin Ratio 1.5 Anion Gap 8.0 mmol/L (3-11) Est Creatinine Clear Calc Drug Dose 33.8 ml/min Estimated GFR () 35.4 Estimated GFR (Non- 30.5 BUN/Creatinine Ratio 16.8 (10-20) Calcium Level 10.0 mg/dl (8.5-10.1) Departure Information Impression Primary Impression: Abrasion of penis, initial encounter Additional Impression: Bleeding on Coumadin Dispostion Home / Self-Care Condition GOOD Referrals Pro,Flex Woo M.D. (PCP) Patient Instructions ED Wound Care, My [facility] Additional Instructions You were seen in the emergency department for bleeding of an open wound on your penis. Your INR was 3.3. We did discuss proper Coumadin management. I encourage you to skip her Coumadin dose today, and take 2.5 mg tomorrow. Be sure to have the INR level checked on at your regularly scheduled appointment. Proper wound care is essential for adequate wound healing and infection prevention. You can shower and clean the wound with soap and water. Do not scour over the wound, pat dry with a towel. Do not submerse the wound (i.e. bathe or dish wash) until the wound has fully healed. You can use an antibiotic ointment with a dressing over the wound for the next 3-4 days. After this time you may leave the wound dry and open to the air. If the bleeding restarts, use gauze and hold pressure to the wound. You may put an ice pack on the wound to help the blood clot. Return to the emergency department for bleeding which does not stop, numbness, tingling, redness, puslike drainage, abscess, or other concerning symptoms. Problem Qualifiers
[2017-01-18 17:15] LABS: BASO % 0.6 %; BASO ABS # 0.05 K/uL (0-0.2); COMPLETE YES; EOS % 1.6 %; HEMATOCRIT 43.3 % (42-52); IG% 0.5 %; LYMPH % 14.5 %; LYMPH ABS # 1.27 K/uL (1.2-3.4); MEAN CELL VOLUME 83.3 fL (80-100); MEAN CORPUSCULAR HEMOGLOBIN 29.2 pg (25-34); MEAN CORPUSCULAR HGB CONC 35.1 g/dl (32-36); MEAN PLATELET VOLUME 10.1 fL (7.4-10.4); MONO % 8.2 %; NEUT % 74.6 %; PLATELET COUNT 200 K/uL (130-400); WHITE BLOOD COUNT 8.74 K/uL (4.8-10.8)
[2017-01-18 17:17] LABS: INR 3.3 (0.9-1.1); PARTIAL THROMBOPLASTIN RATIO 1.5; PROTHROMBIN TIME (PATIENT) 36.7 SECONDS (9.0-12.0)
[2017-01-18 17:27] VITALS: BP 169/95; PULSE 86; O2SAT 96
[2017-01-18 17:27] LABS: CREATININE 2.1 mg/dl (0.60-1.40)
[2017-01-18 17:28] LABS: BUN/CREATININE RATIO 16.8 (10-20); POTASSIUM 4.7 mmol/L (3.5-5.1)
--- NOTE | 2017-01-18 18:04 | EMERGENCY ROOM VISIT NOTE ---
ED Visit Note First contact with patient: 16:12 The patient was seen and examined with Dayna Clayton PA-C. I agree with the history, physical and findings. Please see the note for disposition and details.
== END 2017-01-18 18:19 | disposition home or self-care (01) ==
LOC: C.EDB 15:16 → C.EDD 18:19
DX: S30.815A Abrasion of unspecified external genital organs, male, initial encounter (principal); W23.0XXA Caught, crushed, jammed, or pinched between moving objects, initial encounter; Z86.718 Personal history of other venous thrombosis and embolism; Z79.01 Long term (current) use of anticoagulants; E11.9 Type 2 diabetes mellitus without complications; I10 Essential (primary) hypertension; E78.5 Hyperlipidemia, unspecified; D68.51 Activated protein C resistance; K57.92 Diverticulitis of intestine, part unspecified, without perforation or abscess without bleeding; M13.851 Other specified arthritis, right hip; Z85.528 Personal history of other malignant neoplasm of kidney; Z87.442 Personal history of urinary calculi; Z90.5 Acquired absence of kidney; Z98.890 Other specified postprocedural states; Z79.899 Other long term (current) drug therapy; Z88.2 Allergy status to sulfonamides; Z88.5 Allergy status to narcotic agent

== ENCOUNTER → 2017-03-18 | Outpatient (CLI) | payer OTHER, BC ==
[2017-03-18 09:44] LABS: BLOOD UREA NITROGEN 30 mg/dl (7-18); BUN/CREATININE RATIO 16.4 (10-20); CALCIUM 9.2 mg/dl (8.5-10.1); CARBON DIOXIDE 28 mmol/L (21-32); CHLORIDE 104 mmol/L (98-107); CREATININE 1.86 mg/dl (0.60-1.40); GLUCOSE 167 mg/dl (70-99); PHOSPHORUS 2.3 mg/dl (2.5-4.9); POTASSIUM 4.3 mmol/L (3.5-5.1); SODIUM 135 mmol/L (136-145); URINE APPEARANCE CLEAR (CLEAR); URINE BILIRUBIN NEG (NEG); URINE COLOR YELLOW; URINE NITRITE NEG (NEG); URINE SPECIFIC GRAVITY 1.021 (1.000-1.030); UROBILINOGEN NEG (NEG)
[2017-03-18 09:51] LABS: MANUAL MICROSCOPIC REQUIRED? NO; REVIEW REQ? NO
== END | disposition home or self-care (01) ==
LOC: C.LAB1850 07:53
PROVIDERS: ATTEND Internal Medicine Nephrology
DX: N18.3 Chronic kidney disease, stage 3 (moderate) (principal)

== ENCOUNTER → 2017-05-16 | Outpatient (CLI) | payer OTHER, BC ==
[2017-05-16 09:43] LABS: HEMATOCRIT 45.3 % (42-52); HEMOGLOBIN 15.7 g/dL (14.0-18.0); MEAN CORPUSCULAR HEMOGLOBIN 29.1 pg (25-34); MEAN CORPUSCULAR HGB CONC 34.7 g/dl (32-36); MEAN PLATELET VOLUME 10.3 fL (7.4-10.4); PLATELET COUNT 190 K/uL (130-400); RED CELL DISTRIBUTION WIDTH CV 13.7 % (11.5-14.5); RED CELL DISTRIBUTION WIDTH SD 41.9 fL (36.4-46.3)
[2017-05-16 09:56] LABS: HEMOGLOBIN A1C 9.3 % (4.5-5.6)
[2017-05-16 10:16] LABS: BLOOD UREA NITROGEN 38 mg/dl (7-18); CALCIUM 9.8 mg/dl (8.5-10.1); CARBON DIOXIDE 27 mmol/L (21-32); CREATININE 2.03 mg/dl (0.60-1.40); GLUCOSE 267 mg/dl (70-99); POTASSIUM 4.9 mmol/L (3.5-5.1); SODIUM 134 mmol/L (136-145)
== END | disposition home or self-care (01) ==
LOC: C.LAB1850 08:37
PROVIDERS: ATTEND Internal Medicine
DX: E11.9 Type 2 diabetes mellitus without complications (principal); I10 Essential (primary) hypertension

== ENCOUNTER → 2017-06-06 | Outpatient (CLI) | payer OTHER, BC ==
[2017-06-06 09:46] LABS: INR 2.9 (0.9-1.1)
== END | disposition home or self-care (01) ==
LOC: C.LAB1850 08:19
PROVIDERS: ATTEND Internal Medicine
DX: D68.51 Activated protein C resistance (principal)

== ENCOUNTER 2017-07-25 10:38 | Emergency (ER) | payer OTHER, BC ==
[~2017-07-25] VITALS: Ht 177.8 cm; Wt 95.5 kg
[2017-07-25 11:06] VITALS: TEMP 36.2; Ht 177.8 cm; Wt 95.5 kg
[2017-07-25] MEDS ORDERED: GLIM1TAB2 PO (11:33)
[2017-07-25] MEDS ORDERED: SODIUM CHLORIDE 0.9% 1000ML 1,000 ML IV ONE (12:00)
[2017-07-25 12:08] LABS: BASO % 0.5 %; BASO ABS # 0.03 K/uL (0-0.2); EOS % 2.9 %; EOS ABS # 0.16 K/uL (0-0.5); HEMATOCRIT 40.3 % (42-52); IG# 0.02 K/uL (0.00-0.02); LYMPH ABS # 1.26 K/uL (1.2-3.4); MEAN CELL VOLUME 82.1 fL (80-100); MEAN CORPUSCULAR HEMOGLOBIN 28.5 pg (25-34); MEAN CORPUSCULAR HGB CONC 34.7 g/dl (32-36); MEAN PLATELET VOLUME 9.3 fL (7.4-10.4); MONO % 7.3 %; NEUT % 65.9 %; NEUT ABS # 3.62 K/uL (1.4-6.5); PLATELET COUNT 232 K/uL (130-400); RED CELL DISTRIBUTION WIDTH SD 39.3 fL (36.4-46.3); WHITE BLOOD COUNT 5.49 K/uL (4.8-10.8)
[2017-07-25 12:18] LABS: ALBUMIN 3.9 gm/dl (3.4-5.0); CREATININE 1.96 mg/dl (0.60-1.40); POTASSIUM 4.3 mmol/L (3.5-5.1)
[2017-07-25 12:24] LABS: TOTAL PROTEIN 8.1 gm/dl (6.4-8.2)
--- NOTE | 2017-07-25 13:01 | DIAGNOSTIC IMAGING REPORT ---
ABD/PELVIS NO IV OR ORAL CONT CLINICAL HISTORY: 72 years-old Male presenting with Lower abdominal pain. TECHNIQUE: Multidetector CT of the abdomen and pelvis was performed without the use of intravenous contrast. IV contrast: None. A dose lowering technique was used consistent with the principles of ALARA (as low as reasonably achievable). COMPARISON: 07/18/2015. CT DOSE (mGy.cm): The estimated cumulative dose is 890.32 mGy.cm. FINDINGS: Carpet Technician topogram: Surgical clips project over the left periaortic region. Lung bases: Minimal basilar opacities, likely atelectasis. Normal heart size. Coronary artery and aortic valve calcification. No pericardial or pleural effusion. Liver: Normal morphology. Normal density. Biliary: No gross biliary ductal dilatation allowing for noncontrast technique. Normal gallbladder. Pancreas: Moderate parenchymal atrophy. Spleen: Normal noncontrast appearance. Adrenal glands: The left adrenal gland is surgically absent. Right adrenal gland normal. Kidneys and ureters: Left kidney surgically absent. No nodularity in the operative that allowing for noncontrast technique. Right kidney with several mixed density foci, likely cysts and hemorrhagic or proteinaceous cyst. However, the right kidney is incompletely evaluated without intravenous contrast. Significantly lobular contour may represent lobulations. Nonobstructing punctate calculus at the upper pole. No hydronephrosis. Right ureter normal. Residual left ureter normal. Bladder: Normal. Pelvic organs: Prostate enlargement likely secondary to benign prostatic hyperplasia. Bowel: Diverticulosis of the descending and sigmoid colon. Focal wall thickening and pericolonic fat stranding at the level of the mid sigmoid colon. Minimal tracking into the mesentery without evidence of a well-defined abscess. No extraluminal foci of gas apparent. Normal appendix. No bowel obstruction. Peritoneal cavity: No free fluid or intraperitoneal gas. Lymph nodes: No gross lymphadenopathy allowing for noncontrast technique. Vasculature: Atherosclerosis of the normal caliber abdominal aorta. Postsurgical changes of the left renal vessels. Abdominal wall: Diastasis of the rectus abdominis. Small bowel contained within the wide necked ventral hernia secondary to abdominal diastases. Few additional small fat-containing hernias noted more superiorly at the level of the epigastrium. Musculoskeletal: Degenerative changes of the spine. IMPRESSION: 1. Findings consistent with acute uncomplicated diverticulitis of the mid sigmoid colon. Following treatment, visualization with colonoscopy recommended to exclude underlying neoplasm though this is considered less likely. 2. Nonobstructing punctate right renal calculus. 3. Multiple ventral hernias. No bowel obstruction. 4. Postsurgical changes of left nephrectomy. Allowing for noncontrast technique, no suspicious nodularity in the operative bed. Right kidney incompletely evaluated without intravenous contrast. Electronically signed by: Remington Mayo M.D. 07/25/2017 12:59 PM Dictated Date/Time: 07/25/2017 12:53 PM
[2017-07-25 13:24] VITALS: BP 131/84; PULSE 79; O2SAT 96
[2017-07-25] MEDS ORDERED: METR-163 PO (13:28)
[2017-07-25] MEDS ORDERED: CIPR1TAB10 PO (13:28)
--- NOTE | 2017-07-25 13:41 | EMERGENCY ROOM VISIT NOTE ---
ED Visit Note First contact with patient: 11:17 I have personally seen and evaluated the patient with the physician social work assistant. I agree with the diagnostic/management decisions and have personally been involved in these decisions and agree with the diagnosis.
--- NOTE | 2017-08-05 07:31 | EMERGENCY ROOM VISIT NOTE ---
ED Visit Note First contact with patient: 11:17 Chief Complaint: Abdominal pain. History of Present Illness: Mr. Mijares is a 72 year-old white male who ambulates into the ED accompanied by his complaining of mid lower quadrant abdominal pain. Historically patient reports he has a prior history of diverticulitis. Patient reports approximately 2 weeks ago he was on vacation in [place] and started developing some abdominal pain. He was seen at emergency department down there and diagnosed with a mild diverticulitis. He was started on Augmentin which he took for 10 days and had resolution of his abdominal pain. Patient reports he just returned from [place] 3 days ago and just prior to leaving [place] he had return of his abdominal pain but did not seek medical attention. He reports this feels like his previous pain that he had when he was diagnosed with diverticulitis. Patient is currently complaining of a crampy pain just inferior to his umbilicus in the mid bilateral lower quadrant abdominal area. He reports his pain is constant but does slightly wax and wane in intensity. He reports his base pain as a constant cramping sensation and then intermittently his pain escalates and it becomes sharp in nature. Currently he is rating his discomfort 5/10. His pain is nonradiating. He has not identified any aggravating or alleviating factors related to this pain. He has not taken any medication for pain prior to arrival at the hospital. Associated with his pain he reports intermittently when the pain becomes sharp he feels nauseated but has not vomited and he reports he has been having some chills but no aki fevers. Patient denies skin eruptions, skin color changes, upper respiratory tract symptoms, shortness of breath, chest pain, nausea, vomiting, diarrhea, constipation, rectal bleeding, black/tarry stools, urinary symptoms, hematuria, back/flank pain. Review of Systems: As noted above in history of present illness. All body systems were reviewed and found to be negative as noted above. Past Medical History: As previously noted, DVT left lower extremity, right hip arthritis, diabetes, dyslipidemia, factor V Leiden mutation, hypertension, renal cell carcinoma, status post left nephrectomy and unspecified back surgery. Current Medications: Medications Dose Route/Sig Max Daily Dose Days Date Category Glimepiride 1 Mg Tab 1 Mg PO BID 07/25/17 Reported Warfarin Sodium 5 Mg Tab 2.5 Mg PO 3XWK 10/17/16 Reported Warfarin Sodium 2.5 Mg Tab 5 Mg PO 4XWK 10/17/16 Reported Zestril (Lisinopril) 10 Mg Tab 10 Mg PO QAM 10/17/16 Reported Januvia (Sitagliptin) 50 Mg Tab 50 Mg PO QAM 10/17/16 Reported Cinnamon 500 Mg Tab 1,000 Mg PO BID 01/11/13 Reported Multi For Him (Multiple Vitamins W/ Minerals) 1 Tab Tab 1 Tab PO DAILY 01/11/13 Reported Co Q 10 (Coenzyme Q10 (Ubidecarenone)) 100 Mg Cap 100 Mg PO QAM 01/11/13 Reported Crestor (Rosuvastatin Calcium) 10 Mg Tab 10 Mg PO QAM 01/11/13 Reported Allergies to Medications: Codeine, sulfa. Social History: Patient is currently retired; he feels safe in his home environment; he denies tobacco use; he admits to social alcohol use. Physical Examination: Vital Signs: Date Time Temp Pulse Resp B/P (MAP) Pulse Ox O2 Delivery O2 Flow Rate FiO2 07/25/17 13:24 79 18 131/84 96 Room Air 07/25/17 11:06 36.2 108 18 140/88 95 Room Air GENERAL: 72-year-old male in mild distress due to pain, nontoxic-appearing, afebrile and hemodynamically stable. NEUROLOGICAL: Awake, alert and oriented to person, place and time. Answering questions appropriately and following commands. Normal gait. Good hand eye coordination. SKIN: Warm, dry and pink. No soft tissue eruptions or trauma noted. HEENT: Atraumatic and normocephalic. PERRLA. Sclera white and conjunctiva pink. Oral cavity moist and pink. Pharynx is nonerythematous or edematous. Speech normal. No lymphadenopathy. Trachea midline. No jugular venous distention. BACK: No tenderness over the bony spine. No CVA tenderness. THORAX: Lungs sounds are clear to auscultation and equal bilaterally with symmetrical chest wall. No wheezing, rales or rhonchi. No crepitus, tenderness , subcutaneous air or deformities noted. HEART: Regular rate and rhythm. No gallops, rubs or murmurs are appreciated. ABDOMEN: Flat and soft with mild to moderate tenderness inferior to the umbilicus in the mid lower quadrants. Decreased bowel sounds in all quadrants. No guarding, rigidity or organomegaly. EXTREMITIES: Moves all extremities well on command and with purpose. All distal neurovascular statuses are intact and equal bilaterally. ED Course: Patient is assessed as noted above. Patient's medication list was reviewed. Laboratory Testing: Test 07/25/17 11:25 Range/Units White Blood Count 5.49 4.8-10.8 K/uL Red Blood Count 4.91 4.7-6.1 M/uL Hemoglobin 14.0 14.0-18.0 g/dL Hematocrit 40.3 42-52 % Mean Corpuscular Volume 82.1 80-100 fL Mean Corpuscular Hemoglobin 28.5 25-34 pg Mean Corpuscular Hemoglobin Concent 34.7 32-36 g/dl Platelet Count 232 130-400 K/uL Mean Platelet Volume 9.3 7.4-10.4 fL Neutrophils (%) (Auto) 65.9 % Lymphocytes (%) (Auto) 23.0 % Monocytes (%) (Auto) 7.3 % Eosinophils (%) (Auto) 2.9 % Basophils (%) (Auto) 0.5 % Neutrophils # (Auto) 3.62 1.4-6.5 K/uL Lymphocytes # (Auto) 1.26 1.2-3.4 K/uL Monocytes # (Auto) 0.40 0.11-0.59 K/uL Eosinophils # (Auto) 0.16 0-0.5 K/uL Basophils # (Auto) 0.03 0-0.2 K/uL RDW Standard Deviation 39.3 36.4-46.3 fL RDW Coefficient of Variation 13.0 11.5-14.5 % Immature Granulocyte % (Auto) 0.4 % Immature Granulocyte # (Auto) 0.02 0.00-0.02 K/uL Urine Color YELLOW Urine Appearance CLEAR CLEAR Urine pH 5.0 4.5-7.5 Urine Specific [place] 1.020 1.000-1.030 Urine Protein NEG NEG Urine Glucose (UA) 1+ NEG Urine Ketones NEG NEG Urine Occult Blood NEG NEG Urine Nitrite NEG NEG Urine Bilirubin NEG NEG Urine Urobilinogen NEG NEG Urine Leukocyte Esterase NEG NEG Sodium Level 139 136-145 mmol/L Potassium Level 4.3 3.5-5.1 mmol/L Chloride Level 107 98-107 mmol/L Carbon Dioxide Level 27 21-32 mmol/L Anion Gap 5.0 3-11 mmol/L Blood Urea Nitrogen 29 7-18 mg/dl Creatinine 1.96 0.60-1.40 mg/dl Est Creatinine Clear Calc Drug Dose 38.9 ml/min Estimated GFR () 38.2 Estimated GFR (Non- 33.0 BUN/Creatinine Ratio 15.0 10-20 Random Glucose 136 70-99 mg/dl Calcium Level 10.0 8.5-10.1 mg/dl Total Bilirubin 0.4 0.2-1 mg/dl Aspartate Amino Transf (AST/SGOT) 27 15-37 U/L Alanine Aminotransferase (ALT/SGPT) 39 12-78 U/L Alkaline Phosphatase 59 45-117 U/L Total Protein 8.1 6.4-8.2 gm/dl Albumin 3.9 3.4-5.0 gm/dl Globulin 4.2 2.5-4.0 gm/dl Albumin/Globulin Ratio 0.9 0.9-2 Lipase 184 73-393 U/L Noncontrast Abdominal/Pelvic CT: Was reviewed by myself and read by the radiologist showing findings consistent with uncomplicated diverticulitis of the mid sigmoid colon; radiologist recommends colonoscopy follow-up. Nonobstructive punctate right renal calculus. Multiple ventral hernias. No bowel obstruction. Postsurgical changes of left nephrectomy. Patient was hydrated with normal saline; patient was offered pain medication and antinausea medication and refused. Patient was reassessed multiple times during his stay in the emergency department. Patient's case was reviewed with Dr. Armenta; he independently assessed the patient we agreed on diagnostic approach, treatment, disposition and plan. Patient's case was consulted with the ED pharmacist on antibiotic choices with his current Coumadin treatment; after our discussion it was felt that with close follow-up to recheck his INR ciprofloxacin and Flagyl would be appropriate. Patient and were educated about today's findings and instructed on his treatment plan; he verbalized understanding and agreement with this plan. Clinical Impression: Acute diverticulitis. Decision-Making: Initially my differential diagnosis I considered diverticulitis , bowel obstruction, cystitis, appendicitis, constipation and other causes. Disposition: Patient discharged home in stable condition accompanied by his ; prior to departure he was reassessed and subjectively reported he was feeling much better and was pain and symptom-free. Plan: Patient was encouraged you 650 mg of acetaminophen every 6 hours as needed for persistent pain. Patient was prescribed 500 mg of ciprofloxacin 2 times a day and Flagyl 500 mg 3 times a day for 10 days. Patient was encouraged to stay well-hydrated with increased clear fluids. Patient was encouraged to contact his family physician later this afternoon or early tomorrow and inform them of today's ED visit and request follow-up care and treatment and recheck of his INR in 2 days. Patient was encouraged return to the ED for worsening/uncontrolled pain, fevers , bloody stools, bloody vomitus or any new/concerning symptoms.
== END 2017-07-25 13:46 | disposition home or self-care (01) ==
LOC: C.EDB 10:39 → C.EDC 13:46
DX: K57.92 Diverticulitis of intestine, part unspecified, without perforation or abscess without bleeding (principal); R10.30 Lower abdominal pain, unspecified; N20.0 Calculus of kidney; K43.9 Ventral hernia without obstruction or gangrene; E11.9 Type 2 diabetes mellitus without complications

== ENCOUNTER → 2017-08-03 | Outpatient (CLI) | payer OTHER, BC ==
[~2017-08-03] MED LIST changes: -CALC0.2510 PO; +CIPR1TAB10 PO; +GLIM1TAB2 PO; +METR-163 PO
[2017-08-03 12:26] LABS: INR 4.9 (0.9-1.1)
== END | disposition home or self-care (01) ==
LOC: C.LAB1850 11:34
PROVIDERS: ATTEND Internal Medicine
DX: I82.409 Acute embolism and thrombosis of unspecified deep veins of unspecified lower extremity (principal)

== ENCOUNTER → 2017-08-29 | Outpatient (CLI) | payer OTHER, BC ==
[~2017-08-29] MED LIST changes: -CIPR1TAB10 PO; -METR-163 PO
[2017-08-29 09:55] LABS: HEMOGLOBIN A1C 8.6 % (4.5-5.6)
[2017-08-29 10:32] LABS: ALT/SGPT 39 U/L (12-78); AST/SGOT 21 U/L (15-37); BLOOD UREA NITROGEN 21 mg/dl (7-18); CALCIUM 9.3 mg/dl (8.5-10.1); CARBON DIOXIDE 27 mmol/L (21-32); CREATININE 1.85 mg/dl (0.60-1.40); GLUCOSE 198 mg/dl (70-99); POTASSIUM 4.3 mmol/L (3.5-5.1); SODIUM 139 mmol/L (136-145)
[2017-08-29 10:38] LABS: CHOLESTEROL 153 mg/dl (0-200); LDL CHOLESTEROL CALCULATED 84 mg/dl
== END | disposition home or self-care (01) ==
LOC: C.LAB1850 07:35
PROVIDERS: ATTEND Internal Medicine
DX: E78.5 Hyperlipidemia, unspecified (principal); Z12.5 Encounter for screening for malignant neoplasm of prostate; E11.9 Type 2 diabetes mellitus without complications

== ENCOUNTER → 2017-11-28 | Outpatient (CLI) | payer OTHER, BC ==
[2017-11-28 08:09] LABS: INR 1.5 (0.9-1.1)
== END | disposition home or self-care (01) ==
LOC: C.LAB1850 07:42
PROVIDERS: ATTEND Internal Medicine
DX: I82.409 Acute embolism and thrombosis of unspecified deep veins of unspecified lower extremity (principal)